=== PATIENT | female | born 1970 | race Caucasian/White ===

== ENCOUNTER → 2017-06-16 16:55 | Outpatient (CLI) | payer MEDICAID, SELFPAY | PROVIDERS: Visit Provider Obstetrics & Gynecology | DX: R32 Unspecified urinary incontinence (principal) | CPT/HCPCS: 87086; 87088; 87186 ==

== ENCOUNTER → 2024-02-29 | Outpatient (CLI) | payer BC, SELFPAY ==
--- NOTE | 2024-02-29 14:05 | RAD_ITS ---
INDICATION: KUB- URGENCY INCONT. EXAMINATION/TECHNIQUE: X-RAY - XR Abdomen 1 View COMPARISON: No relevant prior comparison study available FINDINGS: BOWEL GAS PATTERN: Non-obstructive. No bowel or stomach distention. FREE AIR: Not assessed on a single supine view. ORGANOMEGALY: Not seen. CALCIFICATIONS: No abnormal calcifications observed. LOWER CHEST: No acute pathology. BONES AND SOFT TISSUES: No acute pathology. Generator over the right pelvis with sacral stimulator wiring noted. RAD/Abdomen Single View IMPRESSION: No suspicious calcifications. Non-obstructive bowel gas pattern. Electronically Signed: Jai Ruiz MD at 21:15 EST ,
== END | disposition home or self-care (01) ==
PROVIDERS: Referring Provider Urology; Visit Provider Urology
DX: N39.41 Urge incontinence (principal)
CPT/HCPCS: 74018

== ENCOUNTER 2024-08-18 07:33 | Day surgery (SDC) | payer BC, SELFPAY ==
[2024-08-18] VITALS (9 sets, daily range): BP systolic 113–142; BP diastolic 67–76; PULSE 60–82; RESP 16–20; TEMP 36.3–36.7; O2SAT 94–98; BMI 29.9
[2024-08-18] MEDS: Vancomycin IV 1,000 MG/200 ML BAG 200 MG IV (08:17)
[2024-08-18] MEDS: Lactated Ringers 1,000 ML 15 ML IV (08:17)
--- NOTE | 2024-08-18 08:38 | PCM.PRE.AN2 ---
ASA Classification* ASA Classification ASA Classification: 2 Assessment & Plan Anesthesia* Anesthesia Assessment Anesthesia Assessment: Discussed sedation and/or anesthesia options, risks, benefits, and alternatives with patient/parents/legal guardian/POA. Questions invited. The patient/parents/legal guardian/POA seems to understand and agrees to proceed with anesthesia plan. Reviewed the physical assessment, medical history, allergy history and patient home medications list prior to surgery/procedure/anesthetic and documented any changes. Performed airway and anesthesia risk assessments. 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 When Was Last Pacemaker Check QUESTION #4 FULL TEXT: You/Your Family Experience fever (hyperthermia) with Anesthesia Last Oral Intake Last Oral intake: Last Oral Intake NPO since 00:00 08/18/24 07:57 Meds taken in AM with sips of No 08/18/24 07:57 water? Meds patient instructed to take am of surgery PONV PONV - transportation refrigeration technician: PONV - transportation refrigeration technician Female Yes 08/10/24 09:22 HX of Motion Sickness No 08/10/24 09:22 HX of N/V After Surgery No 08/10/24 09:22 Non-Smoker Yes 08/10/24 09:22 Duration of Surgery greater No 08/10/24 09:22 than 60 minutes Number of Risk Factors 2 08/10/24 09:22 PONV Score Moderate Risk 08/10/24 09:22 Height & Weight Height & Weight: Anesthesia: Height & Weight Height 5 ft 6 in 08/18/24 07:57 Weight: 84 kg 08/18/24 07:57 Body Mass Index (BMI) 29.9 08/18/24 07:57 Respiratory Assessment Respiratory Assessment - transportation refrigeration technician: Respiratory Tract Infection Hx - transportation refrigeration technician Hx Respiratory Tract Infection No 08/10/24 09:22 STOP Sleep Apnea STOP Sleep Apnea - transportation refrigeration technician: STOP Sleep Apnea - transportation refrigeration technician Hx Hypertension No 08/10/24 09:22 Hx Sleep Apnea No 08/10/24 09:22 CPAP BIPAP Do you snore loudly (louder No 08/10/24 09:22 than talking or can be heard Do you often feel tired/ No 08/10/24 09:22 fatigued/ sleepy during daytime? Has anyone observed you stop No 08/10/24 09:22 breathing during sleep? STOP Results Negative 08/10/24 09:22 QUESTION #5 FULL TEXT : Do you snore loudly (louder than talking or can be heard through closed doors)? Tobacco Use History Tobacco Use History - transportation refrigeration technician: Tobacco Use History - transportation refrigeration technician Tobacco Use Smoking Status Never smoker 08/10/24 09:22 Hx Tobacco Use No 08/10/24 09:22 Years Smoking Packs Smoked per Day Smoking Cessation Date was within the last 15 years Hx Smoking Cessation Date Hx Smoking Cessation Counseling Hematologic Medial History Hematologic Hx - transportation refrigeration technician: Hematologic Medical Hx - office rep Hx of Blood Transfusion No 08/10/24 09:22 Hx of Transfusion in last 3 No 08/10/24 09:22 Months Date of Last Transfusion (if within last 3 months) Ever experience any problems No 08/10/24 09:22 with transfusion(s)? Specify any problems Hx of Preganancy in last 3 No 08/10/24 09:22 Months Nurse Filling Out Transfusion VCHRISTIN 08/10/24 09:22 & Questions: Date: 08/10/24 08/10/24 09:22 Time: :08/10/24 09:22 Patient unable to answer at this time (ie. confused, unrespo /Reproduction History /Reproductive History - transportation refrigeration technician: /Reproductive Hx- transportation refrigeration technician Hx Now No 08/10/24 09:22 Gestational Age (in weeks): EDC: Hx Hx Para Hx Section SAB No 08/10/24 09:22 Active Medications Active Medications: Current Medications Generic Name Dose Route Start Last Admin Trade Name Freq PRN Reason Stop Dose Admin Vancomycin HCl 1,000 mg in 200 mls @ 200 mls/hr 08/18/24 10:20 08/18/24 08:17 Vancomycin IV 08/18/24 11:19 200 mls/hr PREOP ONE Administration Lactated Ringer's 1,000 mls @ 15 mls/hr 08/18/24 07:45 08/18/24 08:17 IV 15 mls/hr .Q48H DALTON Administration PFSH Medical History (Updated 08/10/24 @ 09:22 by Alicia Wilks) Wears hearing aid Wears glasses Post-menopausal Alcohol use History of steroid therapy Back pain Non-smoker History of stress test Fistula Lichen sclerosus Genital herpes in women Vesicovaginal fistula Hypertension Anxiety Home Medications ?Medication ?Instructions ?Recorded ?Last Taken ?Type hydrochlorothiazide 25 mg tablet 25 mg PO QAM 06/16/17 Unknown History sertraline 100 mg tablet (Zoloft) 100 mg PO QDAY 06/16/17 Unknown History sumatriptan succinate 50 mg tablet 50 mg PO PRN 06/16/17 Unknown History (Imitrex) acyclovir 400 mg tablet 400 mg PO BID PRN cold sores 09/02/17 Unknown History atorvastatin 10 mg tablet 10 mg PO QDAY 09/02/17 Unknown History Lactobacillus acidophilus 10 100 mmu cells PO DAILY 08/10/24 Unknown History billion cell capsule (NewFlora) acetaminophen 500 mg capsule 1,000 mg PO Q6H PRN pain 08/10/24 Unknown History ascorbic acid (vitamin C) 1,000 mg 1,000 mg PO DAILY 08/10/24 Unknown History tablet,extended release (C Complex) d-mannose 500 mg capsule (AZO 1,000 mg PO DAILY 08/10/24 Unknown History D-Mannose) desmopressin 0.2 mg tablet 0.4 mg PO QHS 08/10/24 Unknown History psyllium husk 0.4 gram capsule 0.4 g PO DAILY 08/10/24 Unknown History (Daily Fiber) vibegron 75 mg tablet (Gemtesa) 75 mg PO DAILY 08/10/24 Unknown History Allergy/AdvReac Type Severity Reaction Status Date / Time Sulfa (Sulfonamide Allergy Severe ANXIETY Verified 08/18/24 07:55 Antibiotics) penicillin G Allergy Mild Other Verified 08/18/24 07:55 nitrofurantoin AdvReac Severe Upset Verified 08/18/24 07:55 Stomach Family History Mother Cancer pancreatic Aunt Breast cancer Grandmother Breast cancer Father Hypertension Brother Cancer Blood Brain Surgical History (Updated 10/17/21 @ 17:44 by Rosita Cosby) S/P JAREK-BSO History of bladder surgery right ear surgery hammer toe surgery History of carpal tunnel surgery delivery delivered Social History (Updated 10/17/17 @ 20:[address] Justina Strong MD) Smoking Status: Never smoker alcohol intake: current details: social substance use type: does not use caffeine: Yes frequency: 1-2 times per week seatbelt use: always do you feel safe at home: Yes additional social history: - Works at [employer] in [place] Review of Systems (Anesthesia) ROS Narrative System reviewed and no additional complaints, except as documented. Physical Exam Const alert, oriented x3 and average body habitus Resp normal respiratory effort, normal air movement and clear to auscultation bilaterally Cardio regular rate, regular rhythm, no murmurs and diaphoretic
[2024-08-18] MEDS: Lidocaine 1% /Epi 1:100 (20ml) 20 ML Vial (10:26)
--- NOTE | 2024-08-18 10:52 | DCINST_ITS ---
Discharge Instructions Diet Discharge Diet: No restrictions Activity Discharge Activity: May Shower (on Thursday) May resume sexual activity in: 4 weeks Additional Activity Instructions:: No strenuous activity, no exercise, no tub bathing, no swimming for 4 weeks Dressing / Incision Call your doctor if your incision/area has: Continuous Slow Oozing, Sudden Increased Bleeding, Increased Pain/ Swelling and Foul Smelling Discharge Call your doctor if you observe: Fever of 101 or Higher, Inability to urinate and Inability to have a bowel movement Change Dressing in: leave in place till F/U Follow Up Care Please Follow Up With: Lakesha Mcintosh MD When: The office will call to make follow-up arrangements for approximately 4 weeks. Test Results: Test results from this visit will be discussed in further detail at your follow- up appointment, if applicable. Discharge Plan Admission Attending Provider: Lakesha Mcintosh Primary Care Provider: HALEY MAY Instructions Print Language: Setswana Discharge Orders/Prescriptions Prescriptions: New oxycodone-acetaminophen 5-325 mg tablet 1 tab PO Q8H PRN (Reason: pain) 3 Days Qty: 10 0RF cephalexin 500 mg capsule 500 mg PO Q12 3 Days Qty: 6 0RF Continued hydrochlorothiazide 25 mg tablet 25 mg PO QAM sertraline [Zoloft] 100 mg tablet 100 mg PO QDAY sumatriptan succinate [Imitrex] 50 mg tablet 50 mg PO PRN acyclovir 400 mg tablet 400 mg PO BID PRN (Reason: cold sores) atorvastatin 10 mg tablet 10 mg PO QDAY desmopressin 0.2 mg tablet 0.4 mg PO QHS Gemtesa 75 mg tablet 75 mg PO DAILY C Complex 1,000 mg tablet extended release 1,000 mg PO DAILY AZO D-Mannose 500 mg capsule 1,000 mg PO DAILY NewFlora 10 billion cell capsule 100 mmu cells PO DAILY psyllium husk [Daily Fiber] 0.4 gram capsule 0.4 g PO DAILY acetaminophen 500 mg capsule 1,000 mg PO Q6H PRN (Reason: pain) Referrals / Follow Up: HALEY MAY [Other] Disposition Disposition (needs filled in before D/C Order can be placed): Home, Self Care
--- NOTE | 2024-08-18 10:57 | PCM.OPRPT ---
Operative Report (Standard) Operative Information Date of Procedure: 08/18/24 Pre-Operative Diagnosis: Urge incontinence, nocturia Post-Operative Diagnosis: Same Surgery/Procedure Performed: InterStim battery replacement texture artist: No Type of Anesthesia: Local MAC RN Documented Start/Stop Times: Operation Date: 08/18/24 09:20 Case Time Into Pre-Op 08/18/24 07:44 Out of Pre-Op 08/18/24 10:09 Anesthesia Start 08/18/24 10:17 Into Room 08/18/24 10:17 Procedure Start 08/18/24 10:31 Procedure End 08/18/24 10:45 Anesthesia End 08/18/24 10:52 Into Recovery 08/18/24 10:52 Out of Room 08/18/24 10:52 Procedure Start Time: 10:31 Procedure Stop Time: 10:45 Select all DRAINS/GRAFTS/IMPLANTS that apply: Implanted device Implanted device details: InterStim battery Estimated Blood Loss: <5cc Specimen collected: No Description of surgery: The patient is a 54-year-old female with an InterStim sacral neuromodulation unit. Her battery has and she presents for replacement. Informed consent was obtained. Anesthesia monitored the head, neck, airway, IV access and vital signs throughout the case. Once anesthesia was appropriately ministered she was prepped and draped in usual sterile fashion. The area surrounding the incision was infiltrated with 1% lidocaine with epinephrine. The incision was reopened using a knife. The fascia was identified and opened bringing the battery into the operative field. The pocket showed no evidence of infection or abnormality. The battery was removed using the torque wrench. The pocket site was irrigated with sterile water. The lead was dried and inserted into the new battery and secured using the torque wrench. The battery was then replaced into the pocket where it was closed with 3-0 interrupted Vicryl suturing followed by 4-0 Monocryl subcuticular closure and Dermabond glue. The patient was then awakened and taken to the recovery room in good condition. There were no complications during the procedure. Surgical Findings: No evidence of pocket infection, no impedances identified Complications Complications: No Admit VTE Documentation VTE Present on Admission: Yes VTE Mechan Device Prophylaxis: SCD's VTE Pharm Prophylaxis ordered?: No Reason prophylaxis not ordered: Treatment Not Indicated
--- NOTE | 2024-08-18 11:01 | PCM.POST.ANE ---
Anesthesia: Postop Eval I Current Vital Signs Temperature: 97.4 F Pulse Rate: 70 Blood Pressure: 130/73 Respiratory Rate: 20 Pulse Ox: 94 Assessment Airway patent: Yes Spontaneous unlabored respirations: Yes Mental status: Awake nausea: No Vomiting: No Anesthesia Complication: No Fluid Hydration Crystalloid volume administer (ml): 400 Total IV fluid infused: 400 Progress Note Anesthesia document: Postop Eval 1 completed: Yes
--- NOTE | 2024-08-18 15:11 | POSTOPAN2_ITS ---
Anesthesia Postop Eval I Sum Postop Eval Completion status Anesthesia document: Postop Eval 1 completed: Yes Anesthesia Postop Eval I Summary Anesthesia Postop Eval I Summary: Anesthesia Postop Eval I: Assessment Summary Airway patent Yes 08/18/24 11:06 PEST MANAGEMENT SUPERVISOR.JDEF Spontaneous unlabored Yes 08/18/24 11:06 PEST MANAGEMENT SUPERVISOR.JDEF respirations Mental status Awake 08/18/24 11:06 PEST MANAGEMENT SUPERVISOR.JDEF nausea No 08/18/24 11:06 PEST MANAGEMENT SUPERVISOR.JDEF Vomiting No 08/18/24 11:06 PEST MANAGEMENT SUPERVISOR.JDEF Anesthesia Postop Eval I: Fluid Summary Crystalloid volume administer 400 08/18/24 11:06 PEST MANAGEMENT SUPERVISOR.JDEF (ml) Colloids volume administered ( ml) Blood Product volume administered (ml) Total IV fluid infused 400 08/18/24 11:06 PEST MANAGEMENT SUPERVISOR.JDEF Anesthesia Postop Eval I: Summary Notes Anesthesia Complication No 08/18/24 11:06 PEST MANAGEMENT SUPERVISOR.JDEF Anesthesia Complication Comment: Post-operative progress note Anesthesia: Postop Eval II Evaluation Mental status: Awake Pain Level: 0 nausea: No Vomiting: No Complications Anesthesia Complication: No
--- NOTE | 2024-08-18 15:11 | PCM.POSTANE2 ---
Anesthesia Postop Eval I Sum Postop Eval Completion status Anesthesia document: Postop Eval 1 completed: Yes Anesthesia Postop Eval I Summary Anesthesia Postop Eval I Summary: Anesthesia Postop Eval I: Assessment Summary Airway patent Yes 08/18/24 11:06 GERICARE AIDE.JDEF Spontaneous unlabored Yes 08/18/24 11:06 GERICARE AIDE.JDEF respirations Mental status Awake 08/18/24 11:06 GERICARE AIDE.JDEF nausea No 08/18/24 11:06 GERICARE AIDE.JDEF Vomiting No 08/18/24 11:06 GERICARE AIDE.JDEF Anesthesia Postop Eval I: Fluid Summary Crystalloid volume administer 400 08/18/24 11:06 GERICARE AIDE.JDEF (ml) Colloids volume administered ( ml) Blood Product volume administered (ml) Total IV fluid infused 400 08/18/24 11:06 GERICARE AIDE.JDEF Anesthesia Postop Eval I: Summary Notes Anesthesia Complication No 08/18/24 11:06 GERICARE AIDE.JDEF Anesthesia Complication Comment: Post-operative progress note Anesthesia: Postop Eval II Evaluation Mental status: Awake Pain Level: 0 nausea: No Vomiting: No Complications Anesthesia Complication: No
== END 2024-08-18 11:49 | disposition home or self-care (01) ==
LOC: SDC 07:36 → AC 07:37
PROVIDERS: Referring Provider Urology; Visit Provider Urology
PROC: (CPT 64590; principal; 2024-08-18 09:10)
DX: Z45.42 Encounter for adjustment and management of neurostimulator (principal); E11.9 Type 2 diabetes mellitus without complications; N39.41 Urge incontinence; R35.1 Nocturia; I10 Essential (primary) hypertension; N39.0 Urinary tract infection, site not specified; N95.2 Postmenopausal atrophic vaginitis; Z79.899 Other long term (current) drug therapy
CPT/HCPCS: 64590; 00400; C1787; C1767